=== PATIENT | female | born 1935 | race Caucasian/White ===

== ENCOUNTER 2018-07-20 18:45 | Inpatient (IN) | payer MEDICARE, OTHER ==
--- NOTE | 2018-07-20 19:03 | ED Physician Chart ---
ED Chief Complaint/HPI - Patient Information Date Seen:: 07/20/18 Time Seen:: 18:50 Chief Complaint:: left leg pain History of Present Illness:: Patient is sent here for increasing confusion with delusions for admission to [facility]. She complains of severe left leg pain which started very suddenly. No apparent left leg trauma. Allergies:: Allergies Allergy/AdvReac Type Severity Reaction Status Date / Time ceftriaxone [From Rocephin] Allergy Verified 07/20/18 18:54 Historian:: Patient, EMS Review:: Transfer documents Reviewed ED Review of Systems - Review of Systems General/Constitutional: No fever, No chills, No weight loss, No weakness, No diaphoresis, No edema, No loss of appetite Skin: Skin lesions, No bruising Head: No headache, No light-headedness Eyes: No loss of vision, No pain, No diplopia ENT: No earache, No nasal drainage, No sore throat, No tinnitus Neck: No neck pain, No swelling, No thyromegaly, No stiffness, No mass noted Cardio Vascular: No chest pain, No palpitations, No PND, No orthopnea, No edema Pulmonary: No SOB, No cough, No sputum, No wheezing GI: No nausea, No vomiting, No diarrhea, No pain, No melena, No hematochezia, No constipation, No hematemesis G/U: No dysuria, No frequency, No hematuria Endocrine: No polyuria, No polydipsia Psychiatric: Prior psych history, No depression, No anxiety, No suicidal ideation Hematopoietic: No bruising, No lymphadenopathy Allergic/Immuno: No urticaria, No angioedema Neurological: No syncope, No focal symptoms, No weakness, No paresthesia, No headache, No seizure, No dizziness, No confusion, No vertigo ED Past Medical History - Past Medical History Past Medical History: HTN, DVT/PE, PUD/GERD, Other (impressions disorder; artery disease; peripheral vascular disease; history of venous thrombosis; history of atrial fibrillation; hyperlipidemia; anemia; she now dementia; N hemipares) Family History: Other Social History: Smoker, Care Facility Surgical History: other (unavailable) Psychiatricy History: Dementia Medication: Reviewed Family Medical History - Family Member Mother Sister History Unknown: Yes ED Physical Exam - Physical Examination General/Constitutional: Awake, Well-developed, well-nourished, Alert, No distress Other Gen/Cons comments:: Patient is confused; she does not know the year Head: Atraumatic Eyes: Lids, conjuctiva normal, PERRL Other Skin comments:: Bandage left foot; erythema dorsum left hand; multiple crusts anterior left lower leg compatible with healing scratches; erythema left lower leg ENMT: External ears, nose nl Other ENMT comments:: Edentulous Neck: No mass Respiratory: Nl effort/Exclusion Other Respiratory comments:: 2.5 out of 4 diffuse expiratory wheezing Cardio Vascular: RRR, No murmur, gallop, rubs, NL S1 S2 GI: No tenderness/rebounding/guarding, No organomegaly, No hernia, Normal BS's, Nondistended, No mass/bruits Other Extremities comments:: see under neurological Other Neuro/Psych comments:: Paralysis left arm and left leg ED Labs/Radiology/EKG Results - Lab Results Results: Laboratory Results WBC 8.5 Th/cmm (4.8-10.8) 07/20/18 19:30 RBC 4.02 Mil/cmm (3.80-5.20) 07/20/18 19:30 Hgb 11.1 gm/dL (12-16) L 07/20/18 19:30 Hct 35.1 % (41.0-60) L 07/20/18 19:30 MCV 87.4 fl (81-100) 07/20/18 19:30 MCH 27.6 pg (27.0-31.0) 07/20/18 19:30 MCHC Differential 31.6 pg (28.0-36.0) 07/20/18 19:30 RDW 14.4 % (11.5-20.0) 07/20/18 19:30 Plt Count 416 Th/cmm (150-400) H 07/20/18 19:30 MPV 8.5 fl 07/20/18 19:30 Neutrophils % 60.7 % (40.0-80.0) 07/20/18 19:30 Lymphocytes % 24.0 % (20.0-50.0) 07/20/18 19:30 Monocytes % 11.8 % (2.0-10.0) H 07/20/18 19:30 Eosinophils % 3.1 % (0.0-5.0) 07/20/18 19:30 Basophils % 0.4 % (0.0-2.0) 07/20/18 19:30 Sodium 139 mEq/L (136-145) 07/20/18 19:30 Potassium 3.8 mEq/L (3.5-5.1) 07/20/18 19:30 Chloride 106 mEq/L (98-107) 07/20/18 19:30 Carbon Dioxide 26.1 mEq/L (21.0-31.0) 07/20/18 19:30 Anion Gap 10.7 (7.0-16.0) 07/20/18 19:30 BUN 26 mg/dL (7-25) H 07/20/18 19:30 Creatinine 1.1 mg/dL (0.6-1.2) 07/20/18 19:30 Est GFR ( Amer) TNP 07/20/18 19:30 Est GFR (Non-Af Amer) TNP 07/20/18 19:30 BUN/Creatinine Ratio 23.6 07/20/18 19:30 Glucose 107 mg/dL (70-105) H 07/20/18 19:30 Calcium 9.0 mg/dL (8.6-10.3) 07/20/18 19:30 Total Bilirubin 0.2 mg/dL (0.3-1.0) L 07/20/18 19:30 AST 15 U/L (13-39) 07/20/18 19:30 ALT 10 U/L (7-52) 07/20/18 19:30 Alkaline Phosphatase 70 U/L (34-104) 07/20/18 19:30 Total Protein 6.2 gm/dL (6.0-8.3) 07/20/18 19:30 Albumin 3.2 gm/dL (3.7-5.3) L 07/20/18 19:30 Globulin 3.0 gm/dL 07/20/18 19:30 Albumin/Globulin Ratio 1.1 (1.0-1.8) 07/20/18 19:30 Triglycerides 195 mg/dL (<150) H 07/20/18 19:30 Cholesterol 130 mg/dL (<200) 07/20/18 19:30 LDL Cholesterol Direct 53 mg/dL (75-193) L 07/20/18 19:30 HDL Cholesterol 44 mg/dL (23-92) 07/20/18: TSH 2.35 uIU/ml (0.34-5.60) 07/20/18 Salicylates < 25.0 mg/L (30.0-100.0) L 07/20/18: Acetaminophen < 10.0 ug/mL (10.0-30.0) L 07/20/18: Ethyl Alcohol < 10 mg/dL (0-10) 07/20/18 - Radiology Results Results: Chest x-ray showed increased interstitial markings but is otherwise normal Laboratory Results WBC 8.5 Th/cmm (4.8-10.8) 07/20/18: RBC 4.02 Mil/cmm (3.80-5.20) 07/20/18 Hgb 11.1 gm/dL (12-16) L 07/20/18: Hct 35.1 % (41.0-60) L 07/20/18: MCV 87.4 fl (81-100) 07/20/18: MCH 27.6 pg (27.0-31.0) 07/20/18: MCHC Differential 31.6 pg (28.0-36.0) 07/20/18: RDW 14.4 % (11.5-20.0) 07/20/18: Plt Count 416 Th/cmm (150-400) H 07/20/18:30 MPV 8.5 fl 07/20/18: Neutrophils % 60.7 % (40.0-80.0) 07/20/18:30 Lymphocytes % 24.0 % (20.0-50.0) 07/20/18: Monocytes % 11.8 % (2.0-10.0) H 07/20/18:30 Eosinophils % 3.1 % (0.0-5.0) 07/20/18:30 Basophils % 0.4 % (0.0-2.0) 07/20/18 19:30 Sodium 139 mEq/L (136-145) 07/20/18 19:30 Potassium 3.8 mEq/L (3.5-5.1) 07/20/18 19:30 Chloride 106 mEq/L (98-107) 07/20/18 19:30 Carbon Dioxide 26.1 mEq/L (21.0-31.0) 07/20/18 19:30 Anion Gap 10.7 (7.0-16.0) 07/20/18 19:30 BUN 26 mg/dL (7-25) H 07/20/18 19:30 Creatinine 1.1 mg/dL (0.6-1.2) 07/20/18 19:30 Est GFR ( Amer) TNP 07/20/18 19:30 Est GFR (Non-Af Amer) TNP 07/20/18 19:30 BUN/Creatinine Ratio 23.6 07/20/18 19:30 Glucose 107 mg/dL (70-105) H 07/20/18 19:30 Calcium 9.0 mg/dL (8.6-10.3) 07/20/18:30 Total Bilirubin 0.2 mg/dL (0.3-1.0) L 07/20/18 19:30 AST 15 U/L (13-39) 07/20/18:30 ALT 10 U/L (7-52) 07/20/18:30 Alkaline Phosphatase 70 U/L (34-104) 07/20/18:30 Total Protein 6.2 gm/dL (6.0-8.3) 07/20/18:30 Albumin 3.2 gm/dL (3.7-5.3) L 07/20/18:30 Globulin 3.0 gm/dL 07/20/18:30 Albumin/Globulin Ratio 1.1 (1.0-1.8) 07/20/18 19:30 Triglycerides 195 mg/dL (<150) H 07/20/18 19:30 Cholesterol 130 mg/dL (<200) 07/20/18 19:30 LDL Cholesterol Direct 53 mg/dL (75-193) L 07/20/18 19:30 HDL Cholesterol 44 mg/dL (23-92) 07/20/18 19:30 TSH 2.35 uIU/ml (0.34-5.60) 07/20/18 19:30 Salicylates < 25.0 mg/L (30.0-100.0) L 07/20/18 19:30 Acetaminophen < 10.0 ug/mL (10.0-30.0) L 07/20/18 19:30 Ethyl Alcohol < 10 mg/dL (0-10) 07/20/18 19:30 - EKG Interpretations Rate & Rhythm: normal sinus rhythm with a rate of 94 [place]: Normal axis Comments:: Low-voltage ED Assessment - Assessment General Assessment: While in the emergency department patient constantly complained of left leg pain. She does have a cellulitis of the left lower leg probably secondary to scratching as numerous small crusts were noted. With a constant complaint of pain admission to [facility] seemed preferable to admission to [facility]. I spoke to Dr. Kennedy and patient be admitted to [facility]. She will be given vancomycin 1 g IV piggyback in the emergency department before she goes to her room. Patient has history of deep vein thrombosis but she was uncooperative for the venous Doppler. ED Septic Shock - . Is Septic Shock (SBP<90, OR Lactate>4 mmol\L) present?: No ED Reassessment (Disposition) - Reassessment Reassessment Condition:: Unchanged - Diagnosis Diagnosis:: Cellulitis left lower leg; COPD; dementia; history of heavy nicotine use - Patient Disposition Admitted to:: Med/Surg (asok) Spoke to:: Domingo Kennedy Admitting Medical Physician:: Domingo Kennedy Condition at Disposition:: Stable, Unchanged
[2018-07-20 19:33] LABS: % BASOPHILS 0.4 % (0.0-2.0); % EOSINOPHILS 3.1 % (0.0-5.0); % MONOCYTES 11.8 % (2.0-10.0); % NEUTROPHILS 60.7 % (40.0-80.0); EOSINOPHILE ABSOLUTE 0.3 Th/cmm (0.1-0.4); HEMATOCRIT 35.1 % (41.0-60); HEMOGLOBIN 11.1 gm/dL (12-16); MEAN CELL VOLUME 87.4 fl (81-100); MEAN CORPUSCULAR HEMOGLOBIN 27.6 pg (27.0-31.0); MEAN CORPUSCULAR HGB CONC 31.6 pg (28.0-36.0); MEAN PLATELET VOLUME 8.5 fl; NEUTROPHILE ABSOLUTE 5.2 Th/cmm (1.8-8.0); PLATELET COUNT 416 Th/cmm (150-400); RED BLOOD COUNT 4.02 Mil/cmm (3.80-5.20); RED CELL DISTRIBUTION WIDTH 14.4 % (11.5-20.0); WHITE BLOOD COUNT 8.5 Th/cmm (4.8-10.8)
[2018-07-20 19:48] LABS: ACETAMINOPHEN < 10.0 ug/mL (10.0-30.0); ALB/GLOB RATIO 1.1 (1.0-1.8); ALBUMIN 3.2 gm/dL (3.7-5.3); ALKALINE PHOSPHATASE 70 U/L (34-104); ANION GAP 10.7 (7.0-16.0); BILIRUBIN,TOTAL 0.2 mg/dL (0.3-1.0); BUN - UREA NITROGEN 26 mg/dL (7-25); CARBON DIOXIDE 26.1 mEq/L (21.0-31.0); CHLORIDE 106 mEq/L (98-107); CHOLESTEROL 130 mg/dL (<200); CREATININE - SERUM 1.1 mg/dL (0.6-1.2); GLUCOSE 107 mg/dL (70-105); HDL -HIGH DENSITY LIPOPROTEIN 44 mg/dL (23-92); POTASSIUM SERUM 3.8 mEq/L (3.5-5.1); SGOT 15 U/L (13-39); SGPT/ALT 10 U/L (7-52); SODIUM SERUM 139 mEq/L (136-145); TOTAL PROTEIN,SERUM 6.2 gm/dL (6.0-8.3); TRIGLYCERIDES 195 mg/dL (<150)
[2018-07-20 19:50] LABS: SALICYLATES (ASPIRIN) < 25.0 mg/L (30.0-100.0)
[2018-07-20] MEDS ORDERED: Morphine Sulfate 2 mg/mL 1mL Syr IV STA (21:21)
[2018-07-20] MEDS ORDERED: Morphine Sulfate 2 mg/mL 1mL Syr ONE ×2 (21:25→22:27)
[2018-07-20] MEDS ORDERED: Morphine Sulfate 2 mg/mL 1mL Syr IVP ONE (22:23)
[2018-07-20] MEDS ORDERED: Morphine Sulfate 2 mg/mL 1mL Syr IVP PRN (23:08)
[2018-07-20] MEDS: D5-0.45NS 1,000 ML IV SCH (23:12)
[2018-07-21] MEDS: Hydrocodone/APAP 5mg/325mg Tab PO PRN ×3 (00:39→22:05)
[2018-07-21 01:30] VITALS: BP 186/98
[2018-07-21] MEDS ORDERED: Pneumococcal Vaccine 0.5 mL Vial IM ONE (01:39)
[2018-07-21] MEDS ORDERED: Influenza Vaccine (65 yr & older) 0.5 ml Syr IM ONE (01:39)
[2018-07-21] MEDS: Morphine Sulfate 2 mg/mL 1mL Syr IVP PRN ×3 (02:30→20:58)
[2018-07-21 03:55] LABS: URINE SOURCE CLEAN C
[2018-07-21 03:57] LABS: URINE BILIRUBIN NEGATIVE (NEGATIVE); URINE BLOOD TRACE (NEGATIVE); URINE GLUCOSE (UA) NEGATIVE (NEGATIVE); URINE KETONE NEGATIVE (NEGATIVE); URINE LEUKOCYTE ESTERASE MODERATE (NEGATIVE); URINE MICROSCOPIC INDICATED? YES; URINE NITRATE POSITIVE (NEGATIVE); URINE PH 5.5 (4.6 - 8.0); URINE PROTEIN TRACE mg/dL (NEGATIVE); URINE UROBILINOGEN 0.2 E.U./dL (0.2 - 1.0)
[2018-07-21 04:15] LABS: BARBITURATES URINE NEGATIVE (NEGATIVE); BENZODIAZEPINES QUAL URINE NEGATIVE (NEGATIVE); CANNABINOID THC POSITIVE (NEGATIVE); COCAINE METABOLITE QUAL URINE NEGATIVE (NEGATIVE); METHADONE URINE NEGATIVE (NEGATIVE); METHAMPHETAMINES QUAL URINE NEGATIVE (NEGATIVE); OPIATES (MORPHINE) QUAL. URINE POSITIVE (NEGATIVE); PHENCYCLIDINE (PCP) URINE NEGATIVE (NEGATIVE); TRICYCLICS (TCA) QUAL. URINE NEGATIVE (NEGATIVE)
[2018-07-21 04:22] LABS: URINE CLARITY HAZY (CLEAR); URINE COLOR YELLOW
[2018-07-21 04:23] LABS: URINE BACTERIA MANY /hpf (NONE SEEN); URINE EPITHELIAL CELLS MODERATE /lpf (FEW); URINE WBC >100 /hpf (0-5)
[2018-07-21 04:40] LABS: AMPHETAMINE URINE NEGATIVE (NEGATIVE)
--- NOTE | 2018-07-21 06:56 | Consultation ---
DATE OF CONSULTATION: 07/21/2018 PHYSICIAN: Dr. Kennedy. CURRICULUM AND INSTRUCTION SPECIALIST: Dr. Ibanez. TYPE OF THE REPORT: Psychiatric consult. REASON FOR THE CONSULT: Depression. HISTORY OF PRESENT ILLNESS: The patient is an 83-year-old female who was transferred from [facility] to [facility] because of increasing pain in her leg and also the thought of suicidal ideations and hopeless feeling. The patient has been feeling hopeless and helpless because of increased pain in her leg. The patient said that she wanted to and commit suicide, "but I do not know how." The patient also has been anxious and has been increasingly depressed because of the pain in her leg. The patient also has been isolative and withdrawn and starts to talk about her desire to . The patient said that she has trouble with her sleep at night because of the pain in her leg and she has not been feeling her normal self. PAST PSYCHIATRIC HISTORY: The patient denied any history of any psychiatric problems or treatment by psychiatrist or therapist. SOCIAL HISTORY: The patient is a . She lives in [facility]. PAST MEDICAL HISTORY: The patient has cellulitis in her leg. SOCIAL HISTORY: The patient is a . She has 2 sons and 1 daughter and they are all close to her except one son lives out of state. The patient denied alcohol or street drug use. No legal issues. ALLERGIES: No known allergies. MENTAL STATUS EXAM: The patient appears slightly older than her stated age. Calm. Cooperative. Thought processes are mainly goal directed. The patient denies any auditory or visual hallucinations or delusions. The patient denies any thoughts of suicide or homicide. The patient is alert and oriented to time, place, person, and situation. Intact immediate, recent and remote memories. Fair insight but judgment is questionable. She seems to be of average intelligence based on her verbal ability. ASSESSMENT: PRIMARY DIAGNOSIS: Major depression, severe, single episode, without psychotic features. TREATMENT PLAN: We will monitor the patient's behavior and condition closely. We will start the patient on Cymbalta and we will monitor the dose. Thanks to Dr. Kennedy and we will follow with you. JOB# [id number]
[2018-07-21 07:43] LABS: % BASOPHILS 0.5 % (0.0-2.0); % EOSINOPHILS 2.7 % (0.0-5.0); % LYMPHOCYTES 22.8 % (20.0-50.0); % MONOCYTES 12.3 % (2.0-10.0); % NEUTROPHILS 61.7 % (40.0-80.0); EOSINOPHILE ABSOLUTE 0.2 Th/cmm (0.1-0.4); HEMATOCRIT 31.9 % (41.0-60); HEMOGLOBIN 10.3 gm/dL (12-16); LYMPHOCYTE ABSOLUTE 1.8 Th/cmm (1.5-3.0); MEAN CELL VOLUME 86.1 fl (81-100); MEAN CORPUSCULAR HEMOGLOBIN 27.9 pg (27.0-31.0); MEAN CORPUSCULAR HGB CONC 32.4 pg (28.0-36.0); MEAN PLATELET VOLUME 8.9 fl; NEUTROPHILE ABSOLUTE 4.9 Th/cmm (1.8-8.0); PLATELET COUNT 357 Th/cmm (150-400); WHITE BLOOD COUNT 7.9 Th/cmm (4.8-10.8)
[2018-07-21 07:45] LABS: ANION GAP 10.4 (7.0-16.0); BUN - UREA NITROGEN 23 mg/dL (7-25); CALCIUM SERUM 8.8 mg/dL (8.6-10.3); CARBON DIOXIDE 24.2 mEq/L (21.0-31.0); CHLORIDE 111 mEq/L (98-107); GLUCOSE 132 mg/dL (70-105); POTASSIUM SERUM 3.6 mEq/L (3.5-5.1); SODIUM SERUM 142 mEq/L (136-145)
--- NOTE | 2018-07-21 09:22 | Diagnostic Imaging Report ---
Portable chest x-ray History: Shortness of breath Allowing for portable technique the heart size is normal. No focal pulmonary parenchymal processes. No hilar or mediastinal abnormalities. Impression: No acute abnormalities.
--- NOTE | 2018-07-21 13:20 | Diagnostic Imaging Report ---
Exam: Color Doppler ultrasound examination deep venous circulation left lower extremity. HISTORY: DVT Findings: Real-time ultrasound examination of deep venous circulation of the left lower extremity was performed in multiple planes utilizing color Doppler technique. The study demonstrates deep venous thrombosis left superficial femoral vein distally. The remaining examination is intact. IMPRESSION: Deep venous thrombosis distal left superficial femoral vein.
[2018-07-21] MEDS ORDERED: VTE Chemical Prophylaxis Screen/Admission MC PRN (14:18)
[2018-07-21] MEDS ORDERED: Enoxaparin Subq per Pharmacy MC SCH (18:15)
[2018-07-21] MEDS: Enoxaparin 60 mg/0.6 mL 0.6mL Syr SUBQ SCH (20:58)
[2018-07-21] MEDS: D5-0.45NS 1,000 ML IV SCH (21:01)
--- NOTE | 2018-07-21 21:08 | History & Physical ---
ADMIT DATE: 07/21/2018 CHIEF COMPLAINT: Left leg pain. HISTORY OF PRESENT ILLNESS: This is an 83-year-old female who is a board and care resident, admitted to the med/surg unit due to leg pain and also having increase in confusion. No reports of any fevers. PAST MEDICAL HISTORY: Hypertension, DVT, PE, GERD, peripheral vascular disease, AFib, hyperlipidemia, anemia, dementia. SOCIAL HISTORY: The patient is a intermediate resident. SURGICAL HISTORY: Unknown. MEDICATIONS: See medication list. ALLERGIES: ROCEPHIN. REVIEW OF SYSTEMS: Unable to obtain at this time, the patient is confused. PHYSICAL EXAMINATION: GENERAL: Elderly female, awake, confused, in no apparent distress. VITAL SIGNS: Temperature 97.2, heart rate 78, blood pressure 119/45, respirations 20, O2 98%. HEENT: Head; normocephalic, atraumatic. NECK: Supple. No mass. LUNGS: Clear bilaterally. HEART: Regular rhythm. ABDOMEN: Soft, nontender. LABORATORY DATA: WBC 7.9, H and H 10.3 and 31.9, platelets of 357. Sodium 142, potassium 3.6, chloride 111, BUN 22, creatinine 1.0. DIAGNOSTICS: The patient had a lower extremity ultrasound done. Impression is deep vein thrombosis distal left superficial femoral vein. ASSESSMENT: Deep vein thrombosis on the left superficial femoral vein, cellulitis, hypertension, peripheral vascular disease, history of atrial fibrillation, hyperlipidemia, anemia, dementia. PLAN: The patient to be admitted to Med/Surg unit. We will get an Infectious Disease consultation. We will give vancomycin. We will get followup labs for tomorrow morning. We will continue to monitor this patient. JOB# [id number]
[2018-07-22] MEDS: Morphine Sulfate 2 mg/mL 1mL Syr IVP PRN (05:03)
[2018-07-22 07:03] LABS: % EOSINOPHILS 1.4 % (0.0-5.0); % LYMPHOCYTES 29.9 % (20.0-50.0); % MONOCYTES 11.1 % (2.0-10.0); % NEUTROPHILS 56.6 % (40.0-80.0); BASOPHILE ABSOLUTE 0.1 Th/cumm (0-0.2); EOSINOPHILE ABSOLUTE 0.1 Th/cmm (0.1-0.4); HEMOGLOBIN 10.9 gm/dL (12-16); LYMPHOCYTE ABSOLUTE 1.5 Th/cmm (1.5-3.0); MEAN CELL VOLUME 85.4 fl (81-100); MEAN CORPUSCULAR HEMOGLOBIN 27.4 pg (27.0-31.0); MEAN CORPUSCULAR HGB CONC 32.1 pg (28.0-36.0); MEAN PLATELET VOLUME 9.3 fl; MONOCYTE ABSOLUTE 0.6 Th/cmm (0.3-1.0); NEUTROPHILE ABSOLUTE 2.8 Th/cmm (1.8-8.0); PLATELET COUNT 331 Th/cmm (150-400); RED BLOOD COUNT 3.98 Mil/cmm (3.80-5.20); RED CELL DISTRIBUTION WIDTH 14.4 % (11.5-20.0); WHITE BLOOD COUNT 5.1 Th/cmm (4.8-10.8)
[2018-07-22 07:14] LABS: ANION GAP 10.7 (7.0-16.0); BUN - UREA NITROGEN 15 mg/dL (7-25); CARBON DIOXIDE 23.7 mEq/L (21.0-31.0); CHLORIDE 106 mEq/L (98-107); CREATININE - SERUM 0.7 mg/dL (0.6-1.2); GLUCOSE 108 mg/dL (70-105); POTASSIUM SERUM 3.4 mEq/L (3.5-5.1); SODIUM SERUM 137 mEq/L (136-145)
[2018-07-22] MEDS: Enoxaparin 60 mg/0.6 mL 0.6mL Syr SUBQ SCH ×2 (09:03→21:47)
[2018-07-22] MEDS ORDERED: Potassium Chloride Elixir 20 mEq /15 mL UDC PO ONE (11:36)
[2018-07-22] MEDS: D5-0.45NS 1,000 ML IV SCH (15:00)
[2018-07-22] MEDS: Hydrocodone/APAP 5mg/325mg Tab PO PRN (16:04)
[2018-07-22] MEDS: Levofloxacin 250mg/50mL 250 MG/50 ML BAG IV SCH (23:42)
--- NOTE | 2018-07-23 04:54 | Progress Notes ---
DATE: 07/22/[address] Ibanez. SUBJECTIVE: Case was discussed with staff of the patient, reviewed records. This is an 83-year-old female, who was admitted from [facility] because of increasing pain in her legs and she was having suicidal thoughts, feeling hopeless. The patient has been having a lot of pain in her legs, thus she wanted to , commit suicide, but do not know how. She has been anxious and increasingly depressed because of pain in her legs. She is not sleeping well, is not feeling her normal self. No prior psychiatric treatment. The patient is diagnosed with depression, seen yesterday by Dr. Ibanez. Dr. Ibanez initiated the patient on Cymbalta. The patient continues to be depressed, overwhelmed because of the pain. Hopefully Cymbalta would help with the pain, it could be increased progressively to help with the pain. The patient continues to be depressed, overwhelmed. I think if she continues to be depressed, she may be transferred to [facility] and meanwhile, she need to stay on suicide one-to-one precautions. Thank you very much for allowing me to participate in the care of this most interesting lady. JOB# [id number]
--- NOTE | 2018-07-23 06:08 | Progress Notes ---
DATE: 07/22/2018 SUBJECTIVE: The patient was seen in her room. The patient is awake, alert, oriented. Denies any pain or discomfort at this time, appears to be in and out of confusion. Otherwise, the patient appears to be in no acute distress. OBJECTIVE: VITAL SIGNS: Temperature 97.5, heart rate 81, blood pressure 130/58, respiration 18, 95% on room air. HEENT: Head is atraumatic and normocephalic. Eyes: Bilateral conjunctivae are clear. Bilateral pupils are equally round and reactive. NECK: Supple. No JVD. CARDIOVASCULAR: S1 and S2 without murmur. PULMONARY: Clear to auscultation. GASTROINTESTINAL: Soft and nontender without guarding. Positive bowel sounds. MUSCULOSKELETAL: No clubbing. No cyanosis. Positive left leg pain and discomfort with redness. ASSESSMENT: 1. Left femoral deep vein thrombosis. 2. Cellulitis. 3. Peripheral vascular disease. 4. Hypertension. 5. Hyperlipidemia. 6. Dementia. PLAN: We will continue current antibiotics. We will continue Lovenox. We will follow up with ID doctor for antibiotic management. Treatment plans were discussed with the patient's nurse. Treatment plans were discussed with Dr. Kennedy. JOB# [id number]
[2018-07-23] MEDS: Enoxaparin 60 mg/0.6 mL 0.6mL Syr SUBQ SCH ×2 (08:48→20:33)
[2018-07-23] MEDS: Hydrocodone/APAP 5mg/325mg Tab PO PRN ×4 (08:56→20:36)
--- NOTE | 2018-07-23 12:05 | Internal Medicine Prog Note ---
Internal Medicine Subjective - Subjective Patient seen and examined:: chart reviewed Patient is:: awake, confused, other (no signs of pain) Per staff patient has:: no adverse event Internal Medicine Objective - Results Result Diagrams: 07/22/18 06:15 07/22/18 06:15 Recent Labs: Laboratory Last Values WBC 5.1 Th/cmm (4.8-10.8) D 07/22/18 06:15 RBC 3.98 Mil/cmm (3.80-5.20) 07/22/18 06:15 Hgb 10.9 gm/dL (12-16) L 07/22/18 06:15 Hct 34.0 % (41.0-60) L 07/22/18 06:15 MCV 85.4 fl (81-100) 07/22/18 06:15 MCH 27.4 pg (27.0-31.0) 07/22/18 06:15 MCHC Differential 32.1 pg (28.0-36.0) 07/22/18 06:15 RDW 14.4 % (11.5-20.0) 07/22/18 06:15 Plt Count 331 Th/cmm (150-400) 07/22/18 06:15 MPV 9.3 fl 07/22/18 06:15 Neutrophils % 56.6 % (40.0-80.0) 07/22/18 06:15 Lymphocytes % 29.9 % (20.0-50.0) 07/22/18 06:15 Monocytes % 11.1 % (2.0-10.0) H 07/22/18 06:15 Eosinophils % 1.4 % (0.0-5.0) 07/22/18 06:15 Basophils % 1.0 % (0.0-2.0) 07/22/18 06:15 Sodium 137 mEq/L (136-145) 07/22/18 06:15 Potassium 3.4 mEq/L (3.5-5.1) L 07/22/18 06:15 Chloride 106 mEq/L (98-107) 07/22/18 06:15 Carbon Dioxide 23.7 mEq/L (21.0-31.0) 07/22/18 06:15 Anion Gap 10.7 (7.0-16.0) 07/22/18 06:15 BUN 15 mg/dL (7-25) 07/22/18 06:15 Creatinine 0.7 mg/dL (0.6-1.2) 07/22/18 06:15 Est GFR ( Amer) TNP 07/22/18 06:15 Est GFR (Non-Af Amer) TNP 07/22/18 06:15 BUN/Creatinine Ratio 21.4 07/22/18 06:15 Glucose 108 mg/dL (70-105) H 07/22/18 06:15 Calcium 9.0 mg/dL (8.6-10.3) 07/22/18 06:15 Total Bilirubin 0.2 mg/dL (0.3-1.0) L 07/20/18 19:30 AST 15 U/L (13-39) 07/20/18 19:30 ALT 10 U/L (7-52) 07/20/18 19:30 Alkaline Phosphatase 70 U/L (34-104) 07/20/18 19:30 Total Protein 6.2 gm/dL (6.0-8.3) 07/20/18 19:30 Albumin 3.2 gm/dL (3.7-5.3) L 07/20/18 19:30 Globulin 3.0 gm/dL 07/20/18 19:30 Albumin/Globulin Ratio 1.1 (1.0-1.8) 07/20/18 19:30 Triglycerides 195 mg/dL (<150) H 07/20/18 19:30 Cholesterol 130 mg/dL (<200) 07/20/18 19:30 LDL Cholesterol Direct 53 mg/dL (75-193) L 07/20/18 19:30 HDL Cholesterol 44 mg/dL (23-92) 07/20/18 19:30 TSH 2.35 uIU/ml (0.34-5.60) 07/20/18 19:30 Urine Source CLEAN C 07/20/18 03:00 Urine Color YELLOW 07/20/18 03:00 Urine Clarity HAZY (CLEAR) 07/20/18 03:00 Urine pH 5.5 (4.6 - 8.0) 07/20/18 03:00 Ur Specific [place] >= 1.030 (1.005-1.030) 07/20/18 03:00 Urine Protein TRACE mg/dL (NEGATIVE) 07/20/18 03:00 Urine Glucose (UA) NEGATIVE mg/dL (NEGATIVE) 07/20/18 03:00 Urine Ketones NEGATIVE mg/dL (NEGATIVE) 07/20/18 03:00 Urine Blood TRACE (NEGATIVE) 07/20/18 03:00 Urine Nitrate POSITIVE (NEGATIVE) H 07/20/18 03:00 Urine Bilirubin NEGATIVE (NEGATIVE) 07/20/18 03:00 Urine Urobilinogen 0.2 E.U./dL (0.2 - 1.0) 07/20/18 03:00 Ur Leukocyte Esterase MODERATE (NEGATIVE) H 07/20/18 03:00 Urine RBC 2-5 /hpf (0-5) 07/20/18 03:00 Urine WBC >100 /hpf (0-5) H 07/20/18 03:00 Ur Epithelial Cells MODERATE /lpf (FEW) 07/20/18 03:00 Urine Bacteria MANY /hpf (NONE SEEN) H 07/20/18 03:00 Salicylates < 25.0 mg/L (30.0-100.0) L 07/20/18 19:30 Urine Opiates Screen POSITIVE (NEGATIVE) H 07/20/18 03:00 Urine Methadone Screen NEGATIVE (NEGATIVE) 07/20/18 03:00 Acetaminophen < 10.0 ug/mL (10.0-30.0) L 07/20/18 19:30 Ur Barbiturates Screen NEGATIVE (NEGATIVE) 07/20/18 03:00 Ur Tricyclics Screen NEGATIVE (NEGATIVE) 07/20/18 03:00 Ur Phencyclidine Scrn NEGATIVE (NEGATIVE) 07/20/18 03:00 Amphetamines Screen NEGATIVE (NEGATIVE) 07/20/18 03:00 U Methamphetamines Scrn NEGATIVE (NEGATIVE) 07/20/18 03:00 U Benzodiazepines Scrn NEGATIVE (NEGATIVE) 07/20/18 03:00 U Cocaine Metab Screen NEGATIVE (NEGATIVE) 07/20/18 03:00 U Cannabinoids Screen POSITIVE (NEGATIVE) H 07/20/18 03:00 Ethyl Alcohol < 10 mg/dL (0-10) 07/20/18 19:30 RPR NONREACTIVE (NONREACTIVE) 07/20/18 19:30 - Physical Exam Vitals and I&O: Vital Signs Temp 97.9 F 07/23/18 08:00 Pulse 90 07/23/18 08:00 Resp 18 07/23/18 08:00 BP 157/52 07/23/18 08:00 Pulse Ox 96 07/23/18 08:00 Intake & Output 07/22/18 07/23/18 07/23/18 18:59 06:59 18:59 Intake Total 1099.167 150 Output Total 360 Balance 1099.167 -210 Weight (lbs) 61.235 kg 60.146 kg Intake: Intake, IV Amount 899.167 50 D5-0.45NS 1,000 ml @ 50 899.167 mls/hr IV .Q20H [facility] Rx#: [id number] Levofloxacin 250mg/50mL 50 250 mg In 50 ml @ 50 mls/ hr IV Q24HR [facility] Rx#: [id number] Oral 200 100 Output: Drainage 200 Right Lower Abdomen 200 Urine 150 Other 10 Other: # Voids 3 2 # Bowel Movements 1 0 Stool Characteristics Soft Soft Brown Brown Black Black Weight Source Bedscale Bedscale Active Medications: Current Medications Acetaminophen (Tylenol) 650 mg PO Q6H PRN PRN Reason: mild Pain or Fever >101 Stop: 09/19/18 05:55 Last Admin: 07/23/18 06:25 Dose: 650 mg Acetaminophen/Hydrocodone Bitart (Gordon 5mg/325mg) 1 tab PO Q6H PRN PRN Reason: Pain (Moderate) Stop: 09/19/18 00:24 Last Admin: 07/23/18 09:51 Dose: 1 tab Duloxetine HCl (Cymbalta) 30 mg PO BID [facility]; Protocol Stop: 09/20/18 16:59 Last Admin: 07/23/18 08:48 Dose: 30 mg Enoxaparin Sodium (Lovenox) 60 mg SUBQ Q12HR [facility] Stop: 09/19/18 20:59 Last Admin: 07/23/18 08:48 Dose: 60 mg Dextrose/Sodium Chloride (D5-0.45ns) 1,000 mls @ 50 mls/hr IV .Q20H [facility] Stop: 09/18/18 23:07 Last Admin: 07/22/18 15:00 Dose: 50 mls/hr Levofloxacin (Levaquin Pb) 250 mg in 50 mls @ 50 mls/hr IV Q24HR [facility] Stop: 09/21/18 00:00 Last Infusion: 07/23/18 00:40 Dose: Infused Miscellaneous (Vte Chemical Prophylaxis Screen/ Admission) 1 ea PRN PRN PRN Reason: PROTOCOL Stop: 09/19/18 14:17 Miscellaneous (Lovenox Subq Per Pharmacy) 1 ea PRN LOTUS; Protocol Stop: 09/19/18 18:14 Morphine Sulfate (Morphine) 2 mg IVP Q4HR PRN PRN Reason: Pain (Severe) Stop: 09/18/18 23:07 Last Admin: 07/22/18 05:03 Dose: 2 mg Temazepam (Restoril) 15 mg PO HS PRN; Protocol PRN Reason: Insomnia Stop: 09/20/18 01:52 Last Admin: 07/22/18 21:47 Dose: 15 mg General: alert, other (confused at times) HEENT: NC/AT Neck: Supple Lungs: CTAB Cardiovascular: RRR, Normal S1, Normal S2 Abdomen: non-tender Extremities: clear Neurological: no change Internal Medicine Assmt/Plan - Assessment Assessment: lt fomoral deep vein thrombosis cellulitis pvd htn hyperlipidemia dementia - Plan Plan: antibiotic lovenox id f/up cpm
--- NOTE | 2018-07-23 12:32 | Consultation ---
DATE OF CONSULTATION: 07/22/2018 REFERRING PHYSICIAN: Dr. Kennedy. REASON FOR CONSULTATION: Cellulitis of left leg. HISTORY OF PRESENT ILLNESS: The patient is an 83-year-old female with a past medical history of hypertension, DVT, PE, GERD, peripheral vascular disease, atrial fibrillation, hyperlipidemia, anemia, and dementia, brought in from [facility] and [facility] for pain in left leg. It was associated with increased confusion. The patient denies any fever. On initial evaluation, the patient's temperature was 98.2 degree Fahrenheit and WBC count was 8500. The patient also has pain due to left leg cellulitis, so vancomycin IV was started and ID consult was called for further evaluation and management. Lower extremity ultrasound showed history of DVT of left superficial femoral vein. Besides there is urinalysis suggested pyuria and bacteriuria. Urine culture grew gram-negative rods. ALLERGIES: ALLERGIC TO ROCEPHIN. PAST MEDICAL HISTORY: As mentioned above, hypertension, DVT, PE, GERD, peripheral vascular disease, atrial fibrillation, hyperlipidemia, anemia, and dementia. SOCIAL HISTORY: The patient lives at a [facility]. PAST SURGICAL HISTORY: Unknown. MEDICATIONS: Medication reconciliation sheet. Antibiotic mcclellan, the patient is on vancomycin. REVIEW OF SYSTEMS: The patient is severely demented and unable to give any history. No fever, no chills. PHYSICAL EXAMINATION: CURRENT VITAL SIGNS: Shows temperature is 97.1 degrees Fahrenheit, pulse 99, respirations 19, blood pressure 156/87. GENERAL: The patient is comfortable lying in the bed, in no acute distress. HEENT: Head is normocephalic, atraumatic. Oral cavity moist, pink tongue. Eyes: No pallor, no icterus. PERRLA. EOMI. NECK: Supple, no JVD, no bruit. Trachea in midline. CHEST: Bilateral breath sounds. No crackles or wheezing. HEART: S1, S2 within normal limits. Regular rhythm. No murmur or gallop. ABDOMEN: Soft, nontender, nondistended. Bowel sounds present. EXTREMITIES: No cyanosis, no clubbing, no edema. SKIN: The patient has some bruises on the left leg. CENTRAL NERVOUS SYSTEM: Arousable. Sleeping at this time. LABORATORY DATA: Current lab shows WBC count 5100, hemoglobin 10.9, hematocrit 34.0, platelets are 331,000, neutrophils 56%. Sodium is 137, potassium 3.4, chloride 106, bicarbonate is 24, BUN 15, creatinine 0.7, glucose is 108. Urinalysis shows yellow hazy urine, positive nitrite, negative bilirubin, leukocyte esterase moderate, WBC more than 100, many bacteria. Drug screen is positive for opioids and cannabinoids. RPR nonreactive. IMPRESSION: 1. Urinary tract infection. 2. Cellulitis of left leg, improved. 3. Deep venous thrombosis of the left leg, may be chronic. 4. History of pulmonary embolism. 5. Peripheral vascular disease. 6. History of atrial fibrillation. 7. History of hyperlipidemia. 8. Anemia. 9. Dementia. PLAN AND RECOMMENDATIONS: Change the vancomycin to Levaquin IV. Thank you, Dr. Kennedy for involving me in taking care of this patient. JOB# [id number] SANDRA
--- NOTE | 2018-07-23 13:34 | Progress Notes ---
DATE: 07/23/2018 Case was discussed with staff of the patient, reviewed her records. Also met with her 2 daughters happened to be visiting her and they are saying this is unlike their mother. They think something more is going on medically because she has been very confused. The patient, however, when I talked to her, she denies that she will have any current plans to harm herself or anybody. Apparently, she was given [place] injection earlier today. She is on 1:1 because of her suicidal ideation. She continues to complain of pain, though she reported the pain is good and a little bit better; however, she seems to be somewhat out of it and daughter says she did recognize her. Continues to have poor insight. No side effects to the medication. I did increase Cymbalta dose yesterday and Dr. Ibanez will follow up with her tomorrow. Thank you very much for allowing me to participate in care of this most interesting lady. JOB# [id number]
[2018-07-23] MEDS: D5-0.45NS 1,000 ML IV SCH (15:25)
[2018-07-23] MEDS: Levofloxacin 250mg/50mL 250 MG/50 ML BAG IV SCH (23:55)
[2018-07-24 05:19] LABS: % BASOPHILS 1.3 % (0.0-2.0); % EOSINOPHILS 1.3 % (0.0-5.0); % LYMPHOCYTES 36.5 % (20.0-50.0); % MONOCYTES 14.5 % (2.0-10.0); % NEUTROPHILS 46.4 % (40.0-80.0); BASOPHILE ABSOLUTE 0.1 Th/cumm (0-0.2); EOSINOPHILE ABSOLUTE 0.1 Th/cmm (0.1-0.4); HEMATOCRIT 33.7 % (41.0-60); HEMOGLOBIN 10.8 gm/dL (12-16); LYMPHOCYTE ABSOLUTE 1.6 Th/cmm (1.5-3.0); MEAN CELL VOLUME 87.1 fl (81-100); MEAN CORPUSCULAR HGB CONC 32.1 pg (28.0-36.0); MONOCYTE ABSOLUTE 0.7 Th/cmm (0.3-1.0); PLATELET COUNT 341 Th/cmm (150-400); RED BLOOD COUNT 3.87 Mil/cmm (3.80-5.20); WHITE BLOOD COUNT 4.5 Th/cmm (4.8-10.8)
[2018-07-24 05:35] LABS: ANION GAP 10.6 (7.0-16.0); BUN - UREA NITROGEN 10 mg/dL (7-25); CALCIUM SERUM 8.9 mg/dL (8.6-10.3); CARBON DIOXIDE 23.6 mEq/L (21.0-31.0); CHLORIDE 104 mEq/L (98-107); CREATININE - SERUM 0.8 mg/dL (0.6-1.2); GLUCOSE 109 mg/dL (70-105); POTASSIUM SERUM 3.2 mEq/L (3.5-5.1); SODIUM SERUM 135 mEq/L (136-145)
[2018-07-24] MEDS ORDERED: Potassium Chloride Elixir 20 mEq /15 mL UDC PO ONE (06:45)
[2018-07-24] MEDS: Hydrocodone/APAP 5mg/325mg Tab PO PRN ×2 (09:09→14:14)
[2018-07-24] MEDS: Sulfamethoxazole/TMP 800/160mg Tab PO SCH ×2 (09:09→17:01)
[2018-07-24] MEDS: Enoxaparin 60 mg/0.6 mL 0.6mL Syr SUBQ SCH ×2 (09:14→20:53)
--- NOTE | 2018-07-24 11:43 | Infectious Disease Prog Note ---
Infectious Disease Subjective - Review of Systems Service Date: 07/24/18 Subjective: There is no new change, no fever. Infectious Disease Objective - Results Result Diagrams: 07/24/18 04:45 07/24/18 04:45 Recent Labs: Laboratory Last Values WBC 4.5 Th/cmm (4.8-10.8) L 07/24/18 04:45 RBC 3.87 Mil/cmm (3.80-5.20) 07/24/18 04:45 Hgb 10.8 gm/dL (12-16) L 07/24/18 04:45 Hct 33.7 % (41.0-60) L 07/24/18 04:45 MCV 87.1 fl (81-100) 07/24/18 04:45 MCH 28.0 pg (27.0-31.0) 07/24/18 04:45 MCHC Differential 32.1 pg (28.0-36.0) 07/24/18 04:45 RDW 14.0 % (11.5-20.0) 07/24/18 04:45 Plt Count 341 Th/cmm (150-400) 07/24/18 04:45 MPV 9.0 fl 07/24/18 04:45 Neutrophils % 46.4 % (40.0-80.0) 07/24/18 04:45 Lymphocytes % 36.5 % (20.0-50.0) 07/24/18 04:45 Monocytes % 14.5 % (2.0-10.0) H 07/24/18 04:45 Eosinophils % 1.3 % (0.0-5.0) 07/24/18 04:45 Basophils % 1.3 % (0.0-2.0) 07/24/18 04:45 Sodium 135 mEq/L (136-145) L 07/24/18 04:45 Potassium 3.2 mEq/L (3.5-5.1) L 07/24/18 04:45 Chloride 104 mEq/L (98-107) 07/24/18 04:45 Carbon Dioxide 23.6 mEq/L (21.0-31.0) 07/24/18 04:45 Anion Gap 10.6 (7.0-16.0) 07/24/18 04:45 BUN 10 mg/dL (7-25) 07/24/18 04:45 Creatinine 0.8 mg/dL (0.6-1.2) 07/24/18 04:45 Est GFR ( Amer) TNP 07/24/18 04:45 Est GFR (Non-Af Amer) TNP 07/24/18 04:45 BUN/Creatinine Ratio 12.5 07/24/18 04:45 Glucose 109 mg/dL (70-105) H 07/24/18 04:45 Calcium 8.9 mg/dL (8.6-10.3) 07/24/18 04:45 Total Bilirubin 0.2 mg/dL (0.3-1.0) L 07/20/18 19:30 AST 15 U/L (13-39) 07/20/18 19:30 ALT 10 U/L (7-52) 07/20/18 19:30 Alkaline Phosphatase 70 U/L (34-104) 07/20/18 19:30 Total Protein 6.2 gm/dL (6.0-8.3) 07/20/18 19:30 Albumin 3.2 gm/dL (3.7-5.3) L 07/20/18 19:30 Globulin 3.0 gm/dL 07/20/18 19:30 Albumin/Globulin Ratio 1.1 (1.0-1.8) 07/20/18 19:30 Triglycerides 195 mg/dL (<150) H 07/20/18 19:30 Cholesterol 130 mg/dL (<200) 07/20/18 19:30 LDL Cholesterol Direct 53 mg/dL (75-193) L 07/20/18 19:30 HDL Cholesterol 44 mg/dL (23-92) 07/20/18 19:30 TSH 2.35 uIU/ml (0.34-5.60) 07/20/18 19:30 Urine Source CLEAN C 07/20/18 03:00 Urine Color YELLOW 07/20/18 03:00 Urine Clarity HAZY (CLEAR) 07/20/18 03:00 Urine pH 5.5 (4.6 - 8.0) 07/20/18 03:00 Ur Specific [place] >= 1.030 (1.005-1.030) 07/20/18 03:00 Urine Protein TRACE mg/dL (NEGATIVE) 07/20/18 03:00 Urine Glucose (UA) NEGATIVE mg/dL (NEGATIVE) 07/20/18 03:00 Urine Ketones NEGATIVE mg/dL (NEGATIVE) 07/20/18 03:00 Urine Blood TRACE (NEGATIVE) 07/20/18 03:00 Urine Nitrate POSITIVE (NEGATIVE) H 07/20/18 03:00 Urine Bilirubin NEGATIVE (NEGATIVE) 07/20/18 03:00 Urine Urobilinogen 0.2 E.U./dL (0.2 - 1.0) 07/20/18 03:00 Ur Leukocyte Esterase MODERATE (NEGATIVE) H 07/20/18 03:00 Urine RBC 2-5 /hpf (0-5) 07/20/18 03:00 Urine WBC >100 /hpf (0-5) H 07/20/18 03:00 Ur Epithelial Cells MODERATE /lpf (FEW) 07/20/18 03:00 Urine Bacteria MANY /hpf (NONE SEEN) H 07/20/18 03:00 Salicylates < 25.0 mg/L (30.0-100.0) L 07/20/18 19:30 Urine Opiates Screen POSITIVE (NEGATIVE) H 07/20/18 03:00 Urine Methadone Screen NEGATIVE (NEGATIVE) 07/20/18 03:00 Acetaminophen < 10.0 ug/mL (10.0-30.0) L 07/20/18 19:30 Ur Barbiturates Screen NEGATIVE (NEGATIVE) 07/20/18 03:00 Ur Tricyclics Screen NEGATIVE (NEGATIVE) 07/20/18 03:00 Ur Phencyclidine Scrn NEGATIVE (NEGATIVE) 07/20/18 03:00 Amphetamines Screen NEGATIVE (NEGATIVE) 07/20/18 03:00 U Methamphetamines Scrn NEGATIVE (NEGATIVE) 07/20/18 03:00 U Benzodiazepines Scrn NEGATIVE (NEGATIVE) 07/20/18 03:00 U Cocaine Metab Screen NEGATIVE (NEGATIVE) 07/20/18 03:00 U Cannabinoids Screen POSITIVE (NEGATIVE) H 07/20/18 03:00 Ethyl Alcohol < 10 mg/dL (0-10) 07/20/18 19:30 RPR NONREACTIVE (NONREACTIVE) 07/20/18 19:30 - Physical Exam Vitals and I&O: Vital Signs Temp 98.7 F 07/24/18 04:00 Pulse 87 07/24/18 04:00 Resp 18 07/24/18 08:00 BP 141/56 07/24/18 04:00 Pulse Ox 94 07/24/18 04:00 Intake & Output 07/23/18 07/24/18 07/24/18 18:59 06:59 18:59 Intake Total 1000 Balance 1000 Weight (lbs) 62.312 kg Intake: Intake, IV Amount 1000 D5-0.45NS 1,000 ml @ 50 1000 mls/hr IV .Q20H [facility] Rx#: [id number] Other: # Voids 3 Stool Characteristics Soft Brown Black Weight Source Bedscale Active Medications: Current Medications Acetaminophen (Tylenol) 650 mg PO Q6H PRN PRN Reason: mild Pain or Fever >101 Stop: 09/19/18 05:55 Last Admin: 07/24/18 01:46 Dose: 650 mg Acetaminophen/Hydrocodone Bitart ([place] 5mg/325mg) 1 tab PO Q6H PRN PRN Reason: Pain (Moderate) Stop: 09/19/18 00:24 Last Admin: 07/24/18 09:09 Dose: 1 tab Duloxetine HCl (Cymbalta) 30 mg PO BID LOTUS; Protocol Stop: 09/20/18 16:59 Last Admin: 07/24/18 09:09 Dose: 30 mg Enoxaparin Sodium (Lovenox) 60 mg SUBQ Q12HR [facility] Stop: 09/19/18 20:59 Last Admin: 07/24/18 09:14 Dose: 60 mg Dextrose/Sodium Chloride (D5-0.45ns) 1,000 mls @ 50 mls/hr IV .Q20H [facility] Stop: 09/18/18 23:07 Last Admin: 07/23/18 15:25 Dose: 50 mls/hr Levofloxacin (Levaquin Pb) 250 mg in 50 mls @ 50 mls/hr IV Q24HR [facility] Stop: 09/21/18 00:00 Last Admin: 07/23/18 23:55 Dose: 50 mls/hr Lorazepam (Ativan) 1 mg PO Q4HR PRN; Protocol PRN Reason: Agitation Stop: 09/21/18 17:08 Miscellaneous (Vte Chemical Prophylaxis Screen/ Admission) 1 ea PRN PRN PRN Reason: PROTOCOL Stop: 09/19/18 14:17 Miscellaneous (Lovenox Subq Per Pharmacy) 1 ea PRN [facility]US; Protocol Stop: 09/19/18 18:14 Morphine Sulfate (Morphine) 2 mg IVP Q4HR PRN PRN Reason: Pain (Severe) Stop: 09/18/18 23:07 Last Admin: 07/22/18 05:03 Dose: 2 mg Temazepam (Restoril) 15 mg PO HS PRN; Protocol PRN Reason: Insomnia Stop: 09/20/18 01:52 Last Admin: 07/23/18 20:33 Dose: 15 mg Trimethoprim/Sulfamethoxazole (Bactrim Ds) 1 tab PO BID [facility] Stop: 07/30/18 16:59 Last Admin: 07/24/18 09:09 Dose: 1 tab General: no acute distress, well developed, well nourished HEENT: atraumatic, normocephalic, PERRLA, EOMI Neck: supple, no thyromegaly Cardiovascular: S1S2, regular Lungs: clear to auscultation bilaterally, clear to percussion Abdomen: soft, no tender, no distended Extremities: no cyanosis, no clubbing, no edema Neurological: awake, alert Skin: intact Infectious Disease Assmt/Plan - Problem List Patient Problems: All Active Problems INCREASED CONFUSION, DELUSIONS, LEG PAIN (Acute) - Assessment Assessment: 1. UTI 2. E coli infection. 3. Cellulitis of left leg, improved. 4. DVT, chronic left leg. 5. Dementia/ - Plan Plan: Change antibiotics to Bactrim ss for 7 days. Dc planning.
--- NOTE | 2018-07-24 13:33 | Diagnostic Imaging Report ---
Head CT without intravenous contrast Indication: Frequent headaches Comparison: None Technique: Axial images were obtained from the vertex to the skull base without IV contrast. Coronal reconstructions were made. Total DLP: 770, CTDI42 FINDINGS: Images of the brain obtained without contrast demonstrate no evidence of an acute hemorrhage. Large area of encephalomalacia seen involving the right frontal temporal parietal and occipital lobes. Atrophy is noted. There is mild ex vacuo dilatation of right lateral ventricle. The basal cisterns are patent. No mass effect or midline shift. No evidence of a skull fracture or focal soft tissue swelling. Atherosclerosis is noted. 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 Atrophy. Atherosclerotic vascular disease.
[2018-07-24] MEDS: Morphine Sulfate 2 mg/mL 1mL Syr IVP PRN ×4 (14:09→20:53)
[2018-07-24] MEDS: Venelex 60gm Tube TP SCH (17:01)
--- NOTE | 2018-07-24 20:06 | Progress Notes ---
DATE: 07/24/2018 Case was discussed with staff of the patient, reviewed records. The patient is more alert today. I saw her twice today. Once in the morning, when I came here, she was sleepy, she had a CT scan, they have to give her sedative. When I talked to her again, she was alert. She denies any intent to harm herself or anyone. She said she never said that. She denies any prior attempt to harm herself. No side effects with the medication. She complains of pain, wants [place]. The patient if discharged, need to follow up with the psychiatrist and she is sleeping better, eating better. Thank you very much for allowing me to participate in the care of this most interesting lady. JOB# [id number]
--- NOTE | 2018-07-24 20:49 | Internal Medicine Prog Note ---
Internal Medicine Subjective - Subjective Service Date: 07/24/18 Patient is:: awake, confused, other (no signs of pain, no edema.) Patient Complaints of:: other Per staff patient has:: no adverse event, no episodes of fall (disoriented.) Internal Medicine Objective - Results Result Diagrams: 07/24/18 04:45 07/24/18 04:45 Recent Labs: Laboratory Last Values WBC 4.5 Th/cmm (4.8-10.8) L 07/24/18 04:45 RBC 3.87 Mil/cmm (3.80-5.20) 07/24/18 04:45 Hgb 10.8 gm/dL (12-16) L 07/24/18 04:45 Hct 33.7 % (41.0-60) L 07/24/18 04:45 MCV 87.1 fl (81-100) 07/24/18 04:45 MCH 28.0 pg (27.0-31.0) 07/24/18 04:45 MCHC Differential 32.1 pg (28.0-36.0) 07/24/18 04:45 RDW 14.0 % (11.5-20.0) 07/24/18 04:45 Plt Count 341 Th/cmm (150-400) 07/24/18 04:45 MPV 9.0 fl 07/24/18 04:45 Neutrophils % 46.4 % (40.0-80.0) 07/24/18 04:45 Lymphocytes % 36.5 % (20.0-50.0) 07/24/18 04:45 Monocytes % 14.5 % (2.0-10.0) H 07/24/18 04:45 Eosinophils % 1.3 % (0.0-5.0) 07/24/18 04:45 Basophils % 1.3 % (0.0-2.0) 07/24/18 04:45 Sodium 135 mEq/L (136-145) L 07/24/18 04:45 Potassium 3.2 mEq/L (3.5-5.1) L 07/24/18 04:45 Chloride 104 mEq/L (98-107) 07/24/18 04:45 Carbon Dioxide 23.6 mEq/L (21.0-31.0) 07/24/18 04:45 Anion Gap 10.6 (7.0-16.0) 07/24/18 04:45 BUN 10 mg/dL (7-25) 07/24/18 04:45 Creatinine 0.8 mg/dL (0.6-1.2) 07/24/18 04:45 Est GFR ( Amer) TNP 07/24/18 04:45 Est GFR (Non-Af Amer) TNP 07/24/18 04:45 BUN/Creatinine Ratio 12.5 07/24/18 04:45 Glucose 109 mg/dL (70-105) H 07/24/18 04:45 Calcium 8.9 mg/dL (8.6-10.3) 07/24/18 04:45 Total Bilirubin 0.2 mg/dL (0.3-1.0) L 07/20/18 19:30 AST 15 U/L (13-39) 07/20/18 19:30 ALT 10 U/L (7-52) 07/20/18 19:30 Alkaline Phosphatase 70 U/L (34-104) 07/20/18 19:30 Total Protein 6.2 gm/dL (6.0-8.3) 07/20/18 19:30 Albumin 3.2 gm/dL (3.7-5.3) L 07/20/18 19:30 Globulin 3.0 gm/dL 07/20/18 19:30 Albumin/Globulin Ratio 1.1 (1.0-1.8) 07/20/18 19:30 Triglycerides 195 mg/dL (<150) H 07/20/18 19:30 Cholesterol 130 mg/dL (<200) 07/20/18 19:30 LDL Cholesterol Direct 53 mg/dL (75-193) L 07/20/18 19:30 HDL Cholesterol 44 mg/dL (23-92) 07/20/18 19:30 TSH 2.35 uIU/ml (0.34-5.60) 07/20/18 19:30 Urine Source CLEAN C 07/20/18 03:00 Urine Color YELLOW 07/20/18 03:00 Urine Clarity HAZY (CLEAR) 07/20/18 03:00 Urine pH 5.5 (4.6 - 8.0) 07/20/18 03:00 Ur Specific [place] >= 1.030 (1.005-1.030) 07/20/18 03:00 Urine Protein TRACE mg/dL (NEGATIVE) 07/20/18 03:00 Urine Glucose (UA) NEGATIVE mg/dL (NEGATIVE) 07/20/18 03:00 Urine Ketones NEGATIVE mg/dL (NEGATIVE) 07/20/18 03:00 Urine Blood TRACE (NEGATIVE) 07/20/18 03:00 Urine Nitrate POSITIVE (NEGATIVE) H 07/20/18 03:00 Urine Bilirubin NEGATIVE (NEGATIVE) 07/20/18 03:00 Urine Urobilinogen 0.2 E.U./dL (0.2 - 1.0) 07/20/18 03:00 Ur Leukocyte Esterase MODERATE (NEGATIVE) H 07/20/18 03:00 Urine RBC 2-5 /hpf (0-5) 07/20/18 03:00 Urine WBC >100 /hpf (0-5) H 07/20/18 03:00 Ur Epithelial Cells MODERATE /lpf (FEW) 07/20/18 03:00 Urine Bacteria MANY /hpf (NONE SEEN) H 07/20/18 03:00 Salicylates < 25.0 mg/L (30.0-100.0) L 07/20/18 19:30 Urine Opiates Screen POSITIVE (NEGATIVE) H 07/20/18 03:00 Urine Methadone Screen NEGATIVE (NEGATIVE) 07/20/18 03:00 Acetaminophen < 10.0 ug/mL (10.0-30.0) L 07/20/18 19:30 Ur Barbiturates Screen NEGATIVE (NEGATIVE) 07/20/18 03:00 Ur Tricyclics Screen NEGATIVE (NEGATIVE) 07/20/18 03:00 Ur Phencyclidine Scrn NEGATIVE (NEGATIVE) 07/20/18 03:00 Amphetamines Screen NEGATIVE (NEGATIVE) 07/20/18 03:00 U Methamphetamines Scrn NEGATIVE (NEGATIVE) 07/20/18 03:00 U Benzodiazepines Scrn NEGATIVE (NEGATIVE) 07/20/18 03:00 U Cocaine Metab Screen NEGATIVE (NEGATIVE) 07/20/18 03:00 U Cannabinoids Screen POSITIVE (NEGATIVE) H 07/20/18 03:00 Ethyl Alcohol < 10 mg/dL (0-10) 07/20/18 19:30 RPR NONREACTIVE (NONREACTIVE) 07/20/18 19:30 - Physical Exam Vitals and I&O: Vital Signs Temp 97.9 F 07/24/18 20:00 Pulse 86 07/24/18 20:00 Resp 19 07/24/18 20:00 BP 127/50 07/24/18 20:00 Pulse Ox 96 07/24/18 20:00 Intake & Output 07/24/18 07/24/18 07/25/18 06:59 18:59 06:59 Weight (lbs) 62.312 kg Other: # Voids 3 Weight Source Bedscale Active Medications: Current Medications Acetaminophen (Tylenol) 650 mg PO Q6H PRN PRN Reason: mild Pain or Fever >101 Stop: 09/19/18 05:55 Last Admin: 07/24/18 01:46 Dose: 650 mg Acetaminophen/Hydrocodone Bitart ([place] 5mg/325mg) 1 tab PO Q6H PRN PRN Reason: Pain (Moderate) Stop: 09/19/18 00:24 Last Admin: 07/24/18 14:14 Dose: 1 tab [place] Oil/[place] Balsam/Trypsin (Venelex) 1 appl TP DAILY [facility] Stop: 09/22/18 14:59 Last Admin: 07/24/18 17:01 Dose: 1 appl Duloxetine HCl (Cymbalta) 30 mg PO BID [facility]; Protocol Stop: 09/20/18 16:59 Last Admin: 07/24/18 17:01 Dose: 30 mg Enoxaparin Sodium (Lovenox) 60 mg SUBQ Q12HR [facility] Stop: 09/19/18 20:59 Last Admin: 07/24/18 09:14 Dose: 60 mg Dextrose/Sodium Chloride (D5-0.45ns) 1,000 mls @ 50 mls/hr IV .Q20H [facility] Stop: 09/18/18 23:07 Last Admin: 07/23/18 15:25 Dose: 50 mls/hr Levofloxacin (Levaquin Pb) 250 mg in 50 mls @ 50 mls/hr IV Q24HR [facility] Stop: 09/21/18 00:00 Last Admin: 07/23/18 23:55 Dose: 50 mls/hr Lorazepam (Ativan) 1 mg PO Q4HR PRN; Protocol PRN Reason: Agitation Stop: 09/21/18 17:08 Miscellaneous (Vte Chemical Prophylaxis Screen/ Admission) 1 ea MC PRN PRN PRN Reason: PROTOCOL Stop: 09/19/18 14:17 Miscellaneous (Lovenox Subq Per Pharmacy) 1 ea MC PRN LOTUS; Protocol Stop: 09/19/18 18:14 Morphine Sulfate (Morphine) 2 mg IVP Q4HR PRN PRN Reason: Pain (Severe) Stop: 09/18/18 23:07 Last Admin: 07/24/18 18:21 Dose: 2 mg Temazepam (Restoril) 15 mg PO HS PRN; Protocol PRN Reason: Insomnia Stop: 09/20/18 01:52 Last Admin: 07/23/18 20:33 Dose: 15 mg Trimethoprim/Sulfamethoxazole (Bactrim Ds) 1 tab PO BID [facility] Stop: 07/30/18 16:59 Last Admin: 07/24/18 17:01 Dose: 1 tab Physical Exam: 83 y/o female patient has left leg pain, cellulitis left leg. General: alert, other (confused at times) HEENT: NC/AT Neck: Supple Lungs: CTAB Cardiovascular: RRR, Normal S1, Normal S2 Abdomen: non-tender Extremities: clear Neurological: no change Internal Medicine Assmt/Plan - Assessment Assessment: left fomoral deep vein thrombosis cellulitis uti e coli infection pvd htn hyperlipidemia dementia - Plan Plan: antibiotic lovenox id f/up cpm Nutritional Asmnt/Malnutr-PDOC - Dietary Evaluation Malnutrition Findings (Please click <Entered> for more info): see orders.
[2018-07-24] MEDS: Levofloxacin 250mg/50mL 250 MG/50 ML BAG IV SCH (23:33)
[2018-07-25] MEDS: Morphine Sulfate 2 mg/mL 1mL Syr IVP PRN ×3 (02:35→13:05)
[2018-07-25] MEDS: Sulfamethoxazole/TMP 800/160mg Tab PO SCH (08:46)
[2018-07-25] MEDS: Venelex 60gm Tube TP SCH (08:47)
[2018-07-25 09:10] LABS: % EOSINOPHILS 2.9 % (0.0-5.0); % LYMPHOCYTES 18.5 % (20.0-50.0); % MONOCYTES 13.4 % (2.0-10.0); % NEUTROPHILS 65.2 % (40.0-80.0); EOSINOPHILE ABSOLUTE 0.2 Th/cmm (0.1-0.4); HEMATOCRIT 33.8 % (41.0-60); LYMPHOCYTE ABSOLUTE 1.1 Th/cmm (1.5-3.0); MEAN CELL VOLUME 86.2 fl (81-100); MEAN CORPUSCULAR HEMOGLOBIN 28.1 pg (27.0-31.0); MEAN CORPUSCULAR HGB CONC 32.6 pg (28.0-36.0); MONOCYTE ABSOLUTE 0.8 Th/cmm (0.3-1.0); PLATELET COUNT 348 Th/cmm (150-400); RED BLOOD COUNT 3.92 Mil/cmm (3.80-5.20); WHITE BLOOD COUNT 6.1 Th/cmm (4.8-10.8)
[2018-07-25 09:32] LABS: ALB/GLOB RATIO 1.3 (1.0-1.8); ALBUMIN 3.3 gm/dL (3.7-5.3); ALKALINE PHOSPHATASE 63 U/L (34-104); ANION GAP 13.1 (7.0-16.0); BILIRUBIN,TOTAL 0.3 mg/dL (0.3-1.0); BUN - UREA NITROGEN 10 mg/dL (7-25); CALCIUM SERUM 8.7 mg/dL (8.6-10.3); CARBON DIOXIDE 22.5 mEq/L (21.0-31.0); CHLORIDE 105 mEq/L (98-107); CREATININE - SERUM 0.8 mg/dL (0.6-1.2); GLUCOSE 95 mg/dL (70-105); POTASSIUM SERUM 3.6 mEq/L (3.5-5.1); SGOT 17 U/L (13-39); SGPT/ALT 11 U/L (7-52); SODIUM SERUM 137 mEq/L (136-145); TOTAL PROTEIN,SERUM 5.9 gm/dL (6.0-8.3)
[2018-07-25] MEDS: Enoxaparin 60 mg/0.6 mL 0.6mL Syr SUBQ SCH (09:47)
--- NOTE | 2018-07-25 11:46 | Infectious Disease Prog Note ---
Infectious Disease Subjective - Review of Systems Service Date: 07/25/18 Subjective: There is no new change, no fever. Infectious Disease Objective - Results Result Diagrams: 07/25/18 09:00 07/25/18 09:00 Recent Labs: Laboratory Last Values WBC 6.1 Th/cmm (4.8-10.8) 07/25/18 09:00 RBC 3.92 Mil/cmm (3.80-5.20) 07/25/18 09:00 Hgb 11.0 gm/dL (12-16) L 07/25/18 09:00 Hct 33.8 % (41.0-60) L 07/25/18 09:00 MCV 86.2 fl (81-100) 07/25/18 09:00 MCH 28.1 pg (27.0-31.0) 07/25/18 09:00 MCHC Differential 32.6 pg (28.0-36.0) 07/25/18 09:00 RDW 14.0 % (11.5-20.0) 07/25/18 09:00 Plt Count 348 Th/cmm (150-400) 07/25/18 09:00 MPV 9.0 fl 07/25/18 09:00 Neutrophils % 65.2 % (40.0-80.0) 07/25/18 09:00 Lymphocytes % 18.5 % (20.0-50.0) L 07/25/18 09:00 Monocytes % 13.4 % (2.0-10.0) H 07/25/18 09:00 Eosinophils % 2.9 % (0.0-5.0) 07/25/18 09:00 Basophils % 0.0 % (0.0-2.0) 07/25/18 09:00 Sodium 137 mEq/L (136-145) 07/25/18 09:00 Potassium 3.6 mEq/L (3.5-5.1) 07/25/18 09:00 Chloride 105 mEq/L (98-107) 07/25/18 09:00 Carbon Dioxide 22.5 mEq/L (21.0-31.0) 07/25/18 09:00 Anion Gap 13.1 (7.0-16.0) 07/25/18 09:00 BUN 10 mg/dL (7-25) 04/23/19 09:00 Creatinine 0.8 mg/dL (0.6-1.2) 07/25/18 09:00 Est GFR ( Amer) TNP 07/25/18 09:00 Est GFR (Non-Af Amer) TNP 07/25/18 09:00 BUN/Creatinine Ratio 12.5 07/25/18 09:00 Glucose 95 mg/dL (70-105) 07/25/18 09:00 Calcium 8.7 mg/dL (8.6-10.3) 07/25/18 09:00 Total Bilirubin 0.3 mg/dL (0.3-1.0) 07/25/18 09:00 AST 17 U/L (13-39) 07/25/18 09:00 ALT 11 U/L (7-52) 07/25/18 09:00 Alkaline Phosphatase 63 U/L (34-104) 07/25/18 09:00 Total Protein 5.9 gm/dL (6.0-8.3) L 07/25/18 09:00 Albumin 3.3 gm/dL (3.7-5.3) L 07/25/18 09:00 Globulin 2.6 gm/dL 07/25/18 09:00 Albumin/Globulin Ratio 1.3 (1.0-1.8) 07/25/18 09:00 Triglycerides 195 mg/dL (<150) H 07/20/18 19:30 Cholesterol 130 mg/dL (<200) 07/20/18 19:30 LDL Cholesterol Direct 53 mg/dL (75-193) L 07/20/18 19:30 HDL Cholesterol 44 mg/dL (23-92) 07/20/18 19:30 TSH 2.35 uIU/ml (0.34-5.60) 07/20/18 19:30 Urine Source CLEAN C 07/20/18 03:00 Urine Color YELLOW 07/20/18 03:00 Urine Clarity HAZY (CLEAR) 07/20/18 03:00 Urine pH 5.5 (4.6 - 8.0) 07/20/18 03:00 Ur Specific [place] >= 1.030 (1.005-1.030) 07/20/18 03:00 Urine Protein TRACE mg/dL (NEGATIVE) 07/20/18 03:00 Urine Glucose (UA) NEGATIVE mg/dL (NEGATIVE) 07/20/18 03:00 Urine Ketones NEGATIVE mg/dL (NEGATIVE) 07/20/18 03:00 Urine Blood TRACE (NEGATIVE) 07/20/18 03:00 Urine Nitrate POSITIVE (NEGATIVE) H 07/20/18 03:00 Urine Bilirubin NEGATIVE (NEGATIVE) 07/20/18 03:00 Urine Urobilinogen 0.2 E.U./dL (0.2 - 1.0) 07/20/18 03:00 Ur Leukocyte Esterase MODERATE (NEGATIVE) H 07/20/18 03:00 Urine RBC 2-5 /hpf (0-5) 07/20/18 03:00 Urine WBC >100 /hpf (0-5) H 07/20/18 03:00 Ur Epithelial Cells MODERATE /lpf (FEW) 07/20/18 03:00 Urine Bacteria MANY /hpf (NONE SEEN) H 07/20/18 03:00 Salicylates < 25.0 mg/L (30.0-100.0) L 07/20/18 19:30 Urine Opiates Screen POSITIVE (NEGATIVE) H 07/20/18 03:00 Urine Methadone Screen NEGATIVE (NEGATIVE) 07/20/18 03:00 Acetaminophen < 10.0 ug/mL (10.0-30.0) L 07/20/18 19:30 Ur Barbiturates Screen NEGATIVE (NEGATIVE) 07/20/18 03:00 Ur Tricyclics Screen NEGATIVE (NEGATIVE) 07/20/18 03:00 Ur Phencyclidine Scrn NEGATIVE (NEGATIVE) 07/20/18 03:00 Amphetamines Screen NEGATIVE (NEGATIVE) 07/20/18 03:00 U Methamphetamines Scrn NEGATIVE (NEGATIVE) 07/20/18 03:00 U Benzodiazepines Scrn NEGATIVE (NEGATIVE) 07/20/18 03:00 U Cocaine Metab Screen NEGATIVE (NEGATIVE) 07/20/18 03:00 U Cannabinoids Screen POSITIVE (NEGATIVE) H 07/20/18 03:00 Ethyl Alcohol < 10 mg/dL (0-10) 07/20/18 19:30 RPR NONREACTIVE (NONREACTIVE) 07/20/18 19:30 - Physical Exam Vitals and I&O: Vital Signs Temp 98.7 F 07/25/18 08:00 Pulse 96 07/25/18 08:00 Resp 18 07/25/18 08:00 BP 148/64 07/25/18 08:00 Pulse Ox 96 07/25/18 08:00 Active Medications: Current Medications Acetaminophen (Tylenol) 650 mg PO Q6H PRN PRN Reason: mild Pain or Fever >101 Stop: 09/19/18 05:55 Last Admin: 07/24/18 01:46 Dose: 650 mg Acetaminophen/Hydrocodone Bitart ([place] 5mg/325mg) 1 tab PO Q6H PRN PRN Reason: Pain (Moderate) Stop: 09/19/18 00:24 Last Admin: 07/24/18 14:14 Dose: 1 tab [place] Oil/[place] Balsam/Trypsin (Venelex) 1 appl TP DAILY LOTUS Stop: 09/22/18 14:59 Last Admin: 07/25/18 08:47 Dose: 1 appl Duloxetine HCl (Cymbalta) 30 mg PO BID LOTUS; Protocol Stop: 09/20/18 16:59 Last Admin: 07/25/18 08:46 Dose: 30 mg Enoxaparin Sodium (Lovenox) 60 mg SUBQ Q12HR LOTUS Stop: 09/19/18 20:59 Last Admin: 07/25/18 09:47 Dose: 60 mg Dextrose/Sodium Chloride (D5-0.45ns) 1,000 mls @ 50 mls/hr IV .Q20H LOTUS Stop: 09/18/18 23:07 Last Admin: 07/23/18 15:25 Dose: 50 mls/hr Levofloxacin (Levaquin Pb) 250 mg in 50 mls @ 50 mls/hr IV Q24HR LOTUS Stop: 09/21/18 00:00 Last Admin: 07/24/18 23:33 Dose: 50 mls/hr Lorazepam (Ativan) 1 mg PO Q4HR PRN; Protocol PRN Reason: Agitation Stop: 09/21/18 17:08 Miscellaneous (Vte Chemical Prophylaxis Screen/ Admission) 1 ea MC PRN PRN PRN Reason: PROTOCOL Stop: 09/19/18 14:17 Miscellaneous (Lovenox Subq Per Pharmacy) 1 ea MC PRN LOTUS; Protocol Stop: 09/19/18 18:14 Morphine Sulfate (Morphine) 2 mg IVP Q4HR PRN PRN Reason: Pain (Severe) Stop: 09/18/18 23:07 Last Admin: 07/25/18 08:47 Dose: 2 mg Temazepam (Restoril) 15 mg PO HS PRN; Protocol PRN Reason: Insomnia Stop: 09/20/18 01:52 Last Admin: 07/24/18 23:32 Dose: 15 mg Trimethoprim/Sulfamethoxazole (Bactrim Ds) 1 tab PO BID LOTUS Stop: 07/30/18 16:59 Last Admin: 07/25/18 08:46 Dose: 1 tab General: no acute distress, well developed, well nourished HEENT: atraumatic, normocephalic, PERRLA, EOMI Neck: no supple, no thyromegaly Cardiovascular: S1S2, regular Lungs: clear to auscultation bilaterally, clear to percussion Abdomen: soft, no tender, no distended Extremities: no cyanosis, no clubbing, no edema Neurological: awake, alert, oriented, CN 2-12 intact Skin: intact Infectious Disease Assmt/Plan - Problem List Patient Problems: All Active Problems INCREASED CONFUSION, DELUSIONS, LEG PAIN (Acute) - Assessment Assessment: 1. UTI 2. E coli infection. 3. Cellulitis of left leg, improved. 4. DVT, chronic left leg. 5. Dementia/ - Plan Plan: Change antibiotics to Bactrim ss for D3/7 days. Dc planning.
--- NOTE | 2018-07-25 13:24 | Progress Notes ---
DATE: 07/25/2018 Case was discussed with staff of the patient, reviewed records. The patient continues to be in pain. Keep asking for pain medication; however, she denies any current intent to harm herself or anybody. Denies any visual hallucinations or paranoia. She needs to follow up with the psychiatrist upon discharge. Thank you very much for allowing me to participate in the care of this most interesting lady. [facility]# [id number]
[2018-07-25] MEDS ORDERED: Sulfamethoxazole/TMP 800/160mg Tab PO SCH (17:00)
== END 2018-07-25 14:15 | DRG 871 ==
LOC: ER 18:45 → MSI 22:00
PROVIDERS: ADMIT Internal Medicine; ATTEND Internal Medicine
DX: A41.9 Sepsis, unspecified organism (principal); G92 Toxic encephalopathy; L03.116 Cellulitis of left lower limb; F32.2 Major depressive disorder, single episode, severe without psychotic features; I82.412 Acute embolism and thrombosis of left femoral vein; N39.0 Urinary tract infection, site not specified; I10 Essential (primary) hypertension; I73.9 Peripheral vascular disease, unspecified; I48.91 Unspecified atrial fibrillation; E78.5 Hyperlipidemia, unspecified; F17.210 Nicotine dependence, cigarettes, uncomplicated; J44.9 Chronic obstructive pulmonary disease, unspecified; F03.90 Unspecified dementia, unspecified severity, without behavioral disturbance, psychotic disturbance, mood disturbance, and anxiety; B96.20 Unspecified Escherichia coli [E. coli] as the cause of diseases classified elsewhere; Z86.711 Personal history of pulmonary embolism; Z79.01 Long term (current) use of anticoagulants
CPT/HCPCS: 36415-UA; 70450-TC; 71045-TC; 80048-TC; 80053-TC; 80061-TC; 80307; 80320-TC; 80329-TC; 81001-TC; 84443-TC; 85025-TC; 86592-TC; 87086-90; 93005; 93971-TC-LT; 96375; J1650; J1956; J2270; J3370; Z7610